=== PATIENT | female | born 1995 | race Caucasian/White ===

== ENCOUNTER 2021-02-18 00:56 | Emergency (ER) | payer OTHER ==
[~2021-02-18 00:56] MED LIST: AIMOVIG AU70 MG/1 ML IM; NEURONTIN300 M1 PO; NEXPLANON68 MG ID
[2021-02-18] MEDS ORDERED: FIORICET1 EACH PO (04:00)
== END 2021-02-18 04:10 | disposition home or self-care (01) ==
LOC: FER 00:56
DX: G43.909 Migraine, unspecified, not intractable, without status migrainosus (principal); F17.290 Nicotine dependence, other tobacco product, uncomplicated; Z88.6 Allergy status to analgesic agent; Z88.1 Allergy status to other antibiotic agents
CPT/HCPCS: 84703; 96372; J0780; J1100; J1200; J1885; J2405; J7030